=== PATIENT | female | born 1965 | race Caucasian/White ===

== ENCOUNTER 2017-02-05 19:12 | Emergency (ER) | payer OTHER ==
[2017-06-22] MEDS ORDERED: CELEBREX200 MG PO (07:32)
[2017-06-22] MEDS ORDERED: CLARITIN 10MG T10 MG PO (07:32)
[2017-06-22] MEDS ORDERED: CALCIUM600 MG PO (07:35)
[2017-06-22] MEDS ORDERED: ESSENTIAL DAIL1 EACH PO (07:36)
[2017-06-25] MEDS ORDERED: NORCO 10-325 T1 EACH PO (11:31)
[2017-06-25] MEDS ORDERED: ELIQUIS2.5 MG PO (11:31)
[2017-06-25] MEDS ORDERED: ZOFRAN4 MG PO (11:32)
== END 2017-02-05 20:35 | disposition home or self-care (01) ==
LOC: ER1 19:12
DX: S20.211A Contusion of right front wall of thorax, initial encounter (principal); Z88.5 Allergy status to narcotic agent; Z88.6 Allergy status to analgesic agent; Z88.8 Allergy status to other drugs, medicaments and biological substances; W50.0XXA Accidental hit or strike by another person, initial encounter; Y92.69 Other specified industrial and construction area as the place of occurrence of the external cause; Y99.0 Civilian activity done for income or pay
CPT/HCPCS: 71101; 96372; 99284; J1885